=== PATIENT | female | born 1950 | race American Indian/Alaskan Native ===

== ENCOUNTER 2016-03-13 10:37 | Outpatient (CLI) | payer OTHER ==
--- NOTE | 2016-03-13 12:42 | Fluoroscopy Report ---
UPPER GI AIR CONTRAST: History: Epigastric pain. FINDINGS: The patient ingested barium without difficulty. The esophageal contour is normal. There are no ulcerations or filling defects seen in the esophagus. There is normal esophageal motility. There is no hiatal hernia or reflux. The gastric contour and position appear normal. There are no ulcerations or filling defects in the stomach. The duodenal bulb and duodenal sweep appear normal. 47 fluoroscopic images were obtained. IMPRESSION: Negative double contrast upper GI examination. No reflux or hiatal hernia was noted demonstrated.
== END 2016-03-13 10:38 | disposition home or self-care (01) ==
LOC: FLUORO 10:37
PROVIDERS: ATTEND Internal Medicine
DX: K21.9 Gastro-esophageal reflux disease without esophagitis (principal); R10.13 Epigastric pain
CPT/HCPCS: 74247

== ENCOUNTER 2016-05-26 15:34 | Outpatient (CLI) | payer OTHER ==
--- NOTE | 2016-05-27 08:24 | XRay Report ---
BILATERAL KNEE THREE VIEWS EACH: 05/26/16 15:34:00 CLINICAL: Pain. FINDINGS: Right: Mild osteoarthritis of the patellofemoral joint. No joint effusion. The rest of the joint spaces are normal. No fracture or dislocation. No bone lesion. Normal soft tissues. Left: Mild osteoarthritis of patellofemoral joint and the medial and lateral joint spaces. No joint effusion. No fracture or dislocation. Normal soft tissues. IMPRESSION: Mild bilateral osteoarthritis as described above.
--- NOTE | 2016-05-27 08:25 | XRay Report ---
CHEST TWO VIEWS: 05/26/16 15:34:00 CLINICAL: Cough. COMPARISON: None FINDINGS: Normal heart and pulmonary vasculature.Aortic tortuosity. The lungs are normally expanded and clear.Degenerative change in the spine. No spine fracture. 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
== END 2016-05-26 15:35 | disposition home or self-care (01) ==
LOC: XRAY 15:34
PROVIDERS: ATTEND Internal Medicine
DX: M17.0 Bilateral primary osteoarthritis of knee (principal); M47.899 Other spondylosis, site unspecified
CPT/HCPCS: 71020

== ENCOUNTER 2016-10-06 09:56 | Outpatient (CLI) | payer OTHER ==
--- NOTE | 2016-10-06 12:51 | XRay Report ---
SUPINE KUB: History: Abdominal pain. The abdominal gas pattern is unremarkable. No masses or organomegaly is identified and there is no gross evidence of free air or fluid. No significant soft tissue calcifications are noted. The cholecystectomy clips in the right upper quadrant are noted. IMPRESSION: No acute abdominal process.
== END 2016-10-06 09:57 | disposition home or self-care (01) ==
LOC: XRAY 09:56
PROVIDERS: ATTEND Internal Medicine
DX: R10.9 Unspecified abdominal pain (principal); Z90.49 Acquired absence of other specified parts of digestive tract
CPT/HCPCS: 74000